=== PATIENT | female | born 1950 | race Caucasian/White ===

== ENCOUNTER 2016-08-06 10:55 | Emergency (ER) | payer MEDICARE, BC ==
[2016-08-06] MEDS ORDERED: DILAUDID 1 MG/ML AMP ONE ×2 (11:21→12:19)
[2016-08-06] MEDS ORDERED: ONDANSETRON 4 MG VIAL ONE ×2 (12:19→14:00)
[2016-08-06] MEDS ORDERED: SODIUM CHLORIDE 0.9% 500 ML IV ONE (12:40)
== END 2016-08-06 14:57 | disposition home or self-care (01) ==
LOC: FASTR 10:55
DX: S43.084A Other dislocation of right shoulder joint, initial encounter (principal); W10.9XXA Fall (on) (from) unspecified stairs and steps, initial encounter
CPT/HCPCS: 23655; 73030; 96372; 96374; 96375; 96376; 99284; J1170; J2405; J7040